=== PATIENT | male | born 1970 | race Two or more races ===

== ENCOUNTER 2022-05-05 05:18 | Day surgery (SDC) | payer OTHER ==
[~2022-05-05] VITALS: Ht 177.8 cm; Wt 99.8 kg
[~2022-05-05 05:18] MED LIST: COZAAR50 MG PO
[2022-05-05] MEDS ORDERED: CEPHALEXIN500 MG PO (10:13)
[2022-05-05] MEDS ORDERED: CILOXAN5 ML OTIC ×2 (10:13→10:34)
== END 2022-05-05 16:00 | disposition home or self-care (01) ==
LOC: CIR.AMB 05:18
PROVIDERS: ATTEND Otolaryngology Otology & Neurotology
DX: H80.82 Other otosclerosis, left ear (principal); H90.12 Conductive hearing loss, unilateral, left ear, with unrestricted hearing on the contralateral side; I10 Essential (primary) hypertension; Z86.16 Personal history of COVID-19; Z20.822 Contact with and (suspected) exposure to COVID-19